=== PATIENT | female | born 1955 | race Caucasian/White ===

== ENCOUNTER 2019-02-12 17:00 | Observation (INO) ==
[2019-02-12] MEDS ORDERED: Aspirin 81 MG TAB.CHEW PO ONE (17:09)
[2019-02-12] MEDS ORDERED: Ondansetron 4 MG/2 ML VIAL IVP ONE (17:10)
[2019-02-12 18:06] LABS: Basophils # 0.1 K/mcL (0.0-0.2); Basophils % 1.1 %; Eosinophils # 0.4 K/mcL (0.0-0.6); Eosinophils % 6.6 %; Immature Granulocytes % 4.1 % (0-4); Lymphocytes # 2.2 K/mcL (0.6-4.6); Lymphocytes % 36.6 %; Mean Corpuscular HGB Conc 32.4 g/dL (31.6-35.5); Mean Corpuscular Volume 95.6 fL (83.0-100.0); Mean Platelet Volume 9.6 fL (9.4-12.4); Monocytes # 0.6 K/mcL (0.0-1.3); Monocytes % 10.5 %; Neutrophils # 2.5 K/mcL (1.6-8.9); Platelet Count 271 K/mcL (140-400); Red Blood Count 3.87 M/mcL (3.82-4.97); Red Cell Distribution Width 12.9 % (11.5-14.5); Segmented Neutrophils % 41.1 %; White Blood Count 6.1 K/mcL (4.3-11.1)
[2019-02-12 18:14] LABS: Prothrombin Time 10.9 Seconds (9.4-12.1)
[2019-02-12 18:17] LABS: Activated Partial Thrombo Time 28.2 Seconds (26.0-36.0)
[2019-02-12 18:25] LABS: BUN/Creatinine Ratio 17 (6-26); Blood Urea Nitrogen 15 mg/dL (8-23); Calcium 8.3 mg/dL (8.6-10.3); Carbon Dioxide 25 mEq/L (23-29); Chloride 111 mEq/L (98-107); Glucose 117 mg/dL (70-105); Osmolality,Calculated 296 (280-300); Potassium 4.4 mEq/L (3.5-5.1); Sodium 142 mEq/L (136-145); eGFR For African Americans > 60 (> 60); eGFR For Non-African Americans > 60 (> 60)
[2019-02-12 18:26] LABS: Troponin I < 0.03 ng/mL (< 0.04)
[2019-02-12] MEDS ORDERED: Ipratropium/Albuterol Neb 3 ML IH ONE (18:28)
[2019-02-12] MEDS ORDERED: Nitroglycerin 25 MG/250 ML INFUS..BTL IVC SCH (18:45)
[2019-02-12] MEDS ORDERED: Naloxone 0.4 MG/ML INJ IVP PRN (21:26)
[2019-02-12] MEDS: levETIRAcetam 250 MG TABLET PO SCH (22:57)
[2019-02-12] MEDS: Gabapentin 300 MG CAPSULE PO SCH (22:57)
[2019-02-13] MEDS ORDERED: Acetaminophen 325 MG TABLET PO PRN (00:30)
[2019-02-13] MEDS: *HR* Heparin 5,000 UNIT/ML VIAL SQ SCH ×2 (06:10→17:22)
[2019-02-13 07:42] LABS: Hematocrit 36.2 % (35.3-44.9); Hemoglobin 11.4 g/dL (11.5-15.4); Mean Corpuscular HGB Conc 31.5 g/dL (31.6-35.5); Mean Corpuscular Hemoglobin 30.2 pg (28.0-33.3); Mean Corpuscular Volume 95.8 fL (83.0-100.0); Mean Platelet Volume 9.8 fL (9.4-12.4); Platelet Count 236 K/mcL (140-400); Red Blood Count 3.78 M/mcL (3.82-4.97); Red Cell Distribution Width 12.7 % (11.5-14.5); White Blood Count 5.4 K/mcL (4.3-11.1)
[2019-02-13] MEDS: Aspirin Enteric Coated 81 MG Tablet PO SCH (08:10)
[2019-02-13] MEDS: Gabapentin 300 MG CAPSULE PO SCH ×2 (08:10→20:24)
[2019-02-13] MEDS: levETIRAcetam 250 MG TABLET PO SCH ×2 (08:10→20:24)
[2019-02-13] MEDS: Nitroglycerin 0.4 MG TAB.SUBL SL SCH (09:53)
[2019-02-13 10:49] LABS: BUN/Creatinine Ratio 14 (6-26); Blood Urea Nitrogen 13 mg/dL (8-23); Calcium 8.6 mg/dL (8.6-10.3); Carbon Dioxide 24 mEq/L (23-29); Chloride 111 mEq/L (98-107); Glucose 103 mg/dL (70-105); Osmolality,Calculated 300 (280-300); Potassium 4.2 mEq/L (3.5-5.1); Sodium 145 mEq/L (136-145); eGFR For African Americans > 60 (> 60); eGFR For Non-African Americans 60 (> 60)
[2019-02-13] MEDS: Topiramate 25 MG TABLET PO SCH (20:24)
[2019-02-13] MEDS ORDERED: DOXYLAMINE SUCCINATE 50 MG PO SCH (21:00)
[2019-02-13] MEDS ORDERED: NON-FORMULARY MEDICATION 1 EACH EACH (Melatonin 20 MG) PO SCH (21:00)
[2019-02-14 02:51] LABS: Chol/HDL Ratio 7.3 (0-4.9)
[2019-02-14] MEDS: *HR* Heparin 5,000 UNIT/ML VIAL SQ SCH (06:01)
[2019-02-14] MEDS ORDERED: Regadenoson 0.4 MG/5 ML SYRINGE IVP ONE (06:22)
[2019-02-14 08:44] LABS: Estimated Average Glucose 103 mg/dl
[2019-02-14] MEDS: Gabapentin 300 MG CAPSULE PO SCH (10:00)
[2019-02-14] MEDS: Aspirin Enteric Coated 81 MG Tablet PO SCH (10:00)
[2019-02-14] MEDS: Topiramate 25 MG TABLET PO SCH (10:00)
[2019-02-14] MEDS: levETIRAcetam 250 MG TABLET PO SCH (10:01)
[2019-02-14] MEDS ORDERED: ALPRAZolam 0.25 MG TABLET PO ONE (10:33)
[2019-02-14 11:49] VITALS: BP 100/49
== END 2019-02-14 15:39 | disposition home or self-care (01) ==
LOC: EMEROOARM 17:00 → 2NENU 17:00 → SUATTDRO 19:30 → 2NENU 20:22
PROVIDERS: ADMIT Internal Medicine; ATTEND Internal Medicine

== ENCOUNTER 2021-12-30 10:16 | Inpatient (IN) ==
[2021-12-30] MEDS ORDERED: Morphine Sulfate 2 MG/ML SYRINGE IVP ONE (13:49)
[2021-12-30] MEDS ORDERED: Acetaminophen 325 MG TABLET PO PRN (14:39)
[2021-12-30] MEDS ORDERED: Ondansetron 4 MG/2 ML VIAL IVP PRN (14:39)
[2021-12-30] MEDS ORDERED: Naloxone 0.4 MG/ML INJ IVP PRN (14:39)
[2021-12-30] MEDS: *HR* Heparin 5,000 UNIT/ML VIAL SQ SCH (17:12)
[2021-12-30] MEDS: *HR* OxyCODONE Immed Rel 5 MG TABLET PO PRN (17:12)
[2021-12-30] MEDS: Aspirin 81 MG TAB.CHEW PO SCH (22:09)
[2021-12-30] MEDS: Gabapentin 300 MG CAPSULE PO SCH (22:09)
[2021-12-30] MEDS: *HR* HYDROcodone/Acet 5/325 mg TABLET PO PRN (22:09)
[2021-12-31] MEDS: *HR* OxyCODONE Immed Rel 5 MG TABLET PO PRN ×2 (04:15→13:42)
[2021-12-31 05:59] LABS: Basophils % 0.4 %; Eosinophils # 0.2 K/mcL (0.0-0.6); Eosinophils % 3.7 %; Hematocrit 43.8 % (35.3-44.9); Hemoglobin 14.4 g/dL (11.5-15.4); Immature Granulocytes % 0.7 % (0-4); Lymphocytes # 1.4 K/mcL (0.6-4.6); Lymphocytes % 30.2 %; Mean Corpuscular HGB Conc 32.9 g/dL (31.6-35.5); Mean Corpuscular Hemoglobin 31.4 pg (28.0-33.3); Mean Corpuscular Volume 95.4 fL (83.0-100.0); Mean Platelet Volume 10.1 fL (9.4-12.4); Monocytes # 0.7 K/mcL (0.0-1.3); Monocytes % 14.6 %; Neutrophils # 2.3 K/mcL (1.6-8.9); Platelet Count 194 K/mcL (140-400); Red Blood Count 4.59 M/mcL (3.82-4.97); Red Cell Distribution Width 12.2 % (11.5-14.5); Segmented Neutrophils % 50.4 %; White Blood Count 4.6 K/mcL (4.3-11.1)
[2021-12-31] MEDS: *HR* Heparin 5,000 UNIT/ML VIAL SQ SCH ×2 (06:02→17:43)
[2021-12-31 06:50] LABS: BUN/Creatinine Ratio 15 (6-26); Blood Urea Nitrogen 14 mg/dL (8-23); Calcium 8.8 mg/dL (8.6-10.3); Carbon Dioxide 25 mEq/L (23-29); Chloride 106 mEq/L (98-107); Glucose 87 mg/dL (70-105); Osmolality,Calculated 286 (280-300); Potassium 3.9 mEq/L (3.5-5.1); Sodium 138 mEq/L (136-145); eGFR For African Americans > 60 (> 60); eGFR For Non-African Americans 59 (> 60)
[2021-12-31] MEDS: Aspirin 81 MG TAB.CHEW PO SCH ×2 (08:52→21:32)
[2021-12-31] MEDS: Gabapentin 300 MG CAPSULE PO SCH ×2 (08:52→21:31)
[2021-12-31] MEDS: *HR* HYDROcodone/Acet 5/325 mg TABLET PO PRN (21:31)
[2022-01-01] MEDS: *HR* Heparin 5,000 UNIT/ML VIAL SQ SCH (06:05)
[2022-01-01] MEDS: Aspirin 81 MG TAB.CHEW PO SCH (08:41)
[2022-01-01] MEDS: Gabapentin 300 MG CAPSULE PO SCH (08:41)
[2022-01-01] MEDS: *HR* OxyCODONE Immed Rel 5 MG TABLET PO PRN ×3 (08:43→22:15)
[2022-01-01] MEDS ORDERED: *HR* Propofol 200 MG/20 ML VIAL IVP ONE (10:17)
[2022-01-01] MEDS ORDERED: *HR* FentaNYL (PF) 100 MCG/2 ML VIAL ONE (10:17)
[2022-01-01] MEDS ORDERED: Lidocaine -MPF 2% 5 ML VIAL ONE (10:18)
[2022-01-01] MEDS ORDERED: Ondansetron 4 MG/2 ML VIAL ONE (10:18)
[2022-01-01] MEDS ORDERED: *HR* Succinylcholine 200 MG/10 ML VIAL IVP ONE (10:18)
[2022-01-01] MEDS ORDERED: *HR* Rocuronium Bromide 50 MG/5 ML VIAL ONE (10:18)
[2022-01-01] MEDS ORDERED: Lidocaine HCL 4 ML Topical Solution (Laryng-O-Jet Kit Sterile Pak) TP ONE (10:18)
[2022-01-01] MEDS ORDERED: CeFAZolin Syr 2,000MG/20 ML 2,000 MG/20 ML SYRINGE IVPB ONE (11:02)
[2022-01-01] MEDS ORDERED: Ringers Solution, Lactated 1,000 ML IVC SCH ×2 (11:15→15:36)
[2022-01-01] MEDS ORDERED: *HR* FentaNYL (PF) 100 MCG/2 ML VIAL IVP PRN (11:34)
[2022-01-01] MEDS ORDERED: *HR* HYDROmorphone PF 0.5 MG/0.5 ML SYRINGE IVP PRN (11:34)
[2022-01-01] MEDS ORDERED: Iopamidol - 300 100 ML INFUS..BTL ONE (12:10)
[2022-01-01] MEDS ORDERED: EPHEDrine 50 MG/ML VIAL ONE (12:13)
[2022-01-01] MEDS ORDERED: *HR* Phenylephrine 10 MG/ML VIAL ONE (12:13)
[2022-01-01] MEDS ORDERED: *HR* Norepinephrine 4 MG/4 ML VIAL IVC ONE (13:01)
[2022-01-01] MEDS ORDERED: Sugammadex Sodium 200 MG/2 ML VIAL IV ONE (13:18)
[2022-01-01] MEDS ORDERED: Ondansetron 4 MG/2 ML VIAL IVP PRN (15:36)
[2022-01-01] MEDS: CeFAZolin 2 GM/120 ML BAG IVPB SCH (20:18)
[2022-01-02] MEDS: CeFAZolin 2 GM/120 ML BAG IVPB SCH (05:27)
[2022-01-02] MEDS: *HR* OxyCODONE Immed Rel 5 MG TABLET PO PRN ×2 (05:31→10:31)
[2022-01-02 07:44] VITALS: BP 163/96; PULSE 117; TEMP 98.4; O2SAT 93
== END 2022-01-02 13:01 | disposition home or self-care (01) | DRG 321 ==
LOC: 3ANU 10:16 → EMEROOARM 10:16 → 3ANU 15:31 → SUATTDRO 01-01 13:02 → 4WAOSI 01-01 13:59
PROVIDERS: ADMIT Internal Medicine; ATTEND Family Medicine